=== PATIENT | male | born 2005 | race Caucasian/White ===

== ENCOUNTER → 2024-11-11 08:09 | Outpatient (CLI) | payer OTHER, SELFPAY ==
--- NOTE | 2024-11-11 | DI.ECHO.S_ITS ---
[facility] : : [address] : : [place] : : [id number] : : Phone: [phone] Echocardiogram Report + + :Name: ALFRED ENG Study Date: 11/11/2024 Height: 70 in : :[facility] ReadingLocation: Weight: 195 lb : : Gender: Male BSA: 2.1 m2 : :: 2005 Age: 19 yrs BP: 121/66 mmHg: :Reason For Study: FREQUENT PVC : :Ordering Physician: RAMSES : :ERIN Performed By: Delfino Kang : :Referring: UNSPECIFIED : + + Interpretation Summary 1) Normal left ventricular thickness and size with mildly reduced systolic function (EF 45-50%). 2) Upper normal right ventricular size with normal function. 3) Moderate biatrial enlargement present. 4) There is mild mitral regurgitation. 5) No prior Echo available for comparison. Procedure: A two-dimensional transthoracic echocardiogram with color flow and Doppler was performed. The study quality was technically good. There is no prior echocardiogram noted for this patient. The patient had frequent PVCs during the exam. Left Ventricle: The left ventricle is normal in size. There is normal left ventricular wall thickness. There is no ventricular septal defect visualized. The ejection fraction is estimated to be 45-50%. There is mild global hypokinesis of the left ventricle. Right Ventricle: The right ventricle is at the upper limits of normal in size. The right ventricular systolic function is normal. Atria: The left atrium is moderately dilated. The right atrium is moderately dilated. There is no Doppler evidence for an interatrial shunt. Mitral Valve: The mitral valve leaflets appear mildly thickened, but open well. There is mild mitral regurgitation. Aortic Valve: The aortic valve is trileaflet. The aortic valve opens well. There is no aortic valve stenosis. No aortic regurgitation is present. Tricuspid Valve: The tricuspid valve leaflets are thin and pliable. There is trace tricuspid regurgitation. The right ventricular systolic pressure is estimated to be at least 35 mmHg based on an estimated right atrial pressure of 8 mm Hg. Pulmonic Valve: The pulmonic valve leaflets are thin and pliable; valve motion is normal. There is no pulmonic valvular regurgitation. Great Vessels: The aortic root is normal size. The dimensions of the ascending aorta are normal. The pulmonary artery is normal size. The IVC is dilated (diameter is greater than 2.1 cm) yet it collapses greater than 50% with a sniff. This suggests a right atrial pressure of 8 mm Hg. Pericardium/ Pleura There is no pericardial effusion. There is no pleural effusion. MMode/2D Measurements & Calculations LVIDd: 5.8 cm LVOT diam: 2.2 cm LVIDs: 4.5 cm Ao root diam: 3.4 cm FS: 22.4 % asc Aorta Diam: 2.9 cm EPSS: 0.92 cm IVSd: 0.92 cm LVPWd: 0.92 cm LV villegas. diameter/BSA (cm/m^2): 2.8 LV sys. diameter/BSA (cm/m^2): 2.2 LA A2 area: 25.3 cm2 RA long axis: 6.3 cm LA A4 area: 23.8 cm2 RA area: 24.9 cm2 LA length (vol): 6.9 cm RA vol: 84.0 ml LA vol: 73.7 ml RA : 40.7 ml/m2 LA vol index: 35.7 ml/m2 IVC diam: 2.2 cm RVD1 (basal): 4.0 cm RVD2 (mid): 3.2 cm TAPSE: 3.2 cm Doppler Measurements & Calculations Ao V2 max: 129.0 cm/sec LVOT Max Manish: 90.2 cm/sec Ao V2 mean: 94.7 cm/sec LV V1 max P.3 mmHg Ao max P.7 mmHg LV V1 VTI: 20.3 cm Ao mean P.9 mmHg JOHN(I,D): 2.6 cm2 Ao V2 VTI: 29.6 cm JOHN(V,D): 2.6 cm2 sev ratio: 0.69 JOHN indexed to BSA (cm^2/m^2): 1.3 Med Peak E' Manish: 13.1 cm/sec TR max manish: 261.7 cm/sec Lat Peak E' Manish: 22.4 cm/sec TR max P.4 mmHg PA V2 max: 78.1 cm/sec PA V2 mean: 58.9 cm/sec PA mean P.5 mmHg PA pr(Accel): 25.9 mmHg SV(LVOT): 76.4 ml Reading Physician:02:14 PM
== END ==
LOC: ECHO 08:12
PROVIDERS: Referring Provider Family Medicine; Visit Provider Family Medicine
DX: I34.0 Nonrheumatic mitral (valve) insufficiency (principal); R94.31 Abnormal electrocardiogram [ECG] [EKG]
CPT/HCPCS: 93306